=== PATIENT | female | born 1995 | race Caucasian/White ===

== ENCOUNTER → 2018-11-26 | Emergency (ER) | payer BC, OTHER ==
[~2018-11-26] MED LIST: Lidocaine 1% w/Epinephrine 1:100K 20 ML VIAL ONE; Triple Antibiotic Oint 1 GM Packet ONE
== END ==
LOC: ERS 01:34
DX: S81.011A Laceration without foreign body, right knee, initial encounter (principal); W20.8XXA Other cause of strike by thrown, projected or falling object, initial encounter
CPT/HCPCS: 12002; J2001